=== PATIENT | female | born 1985 | race Caucasian/White ===

== ENCOUNTER 2020-09-12 07:46 | Day surgery (SDC) | payer BC ==
[2020-09-07 13:56] VITALS: BMI 26.2
[~2020-09-12 07:46] MED LIST: LACTATED RINGERS 1,000 ML IV SCH; LIDOCAINE 1% (10MG/ML) FOR IV START INTRADERMA PRN
[2020-09-12 07:59] VITALS: RESP 16; TEMP 97.6
[2020-09-12] MEDS ORDERED: MIDAZOLAM 2 MG/2 ML VIAL ONE (08:47)
[2020-09-12] MEDS ORDERED: PROPOFOL 10 MG/ML 20 ML VIAL IV ONE (08:47)
[2020-09-12] MEDS ORDERED: fentaNYL (PF) 50 MCG/ML 2 ML AMP ONE (08:47)
--- NOTE | 2020-09-12 09:02 | P.PCN ---
Date of Procedure: 09/12/20 Procedure(s) Performed: BRIEF HISTORY: Patient is a 35-year-old pleasant white female scheduled for an elective colonoscopy as a part of evaluation of prior history of colon polyps. Her last colonoscopy was 3 years ago. PROCEDURE PERFORMED: Colonoscopy with snare polypectomy. PREOPERATIVE DIAGNOSIS: History of colon polyps. IV sedation per Anesthesia. PROCEDURE: After informed consent was obtained, the patient, was brought into the endoscopy unit. IV sedation was administered by Anesthesia under continuous monitoring. Digital rectal examination was normal. Initially the Olympus CF-160 flexible video colonoscope was then inserted in the rectum, gradually advanced into the cecum without any difficulty. Careful examination was performed as the scope was gradually being withdrawn. Ileocecal valve and the appendiceal orifice were visualized and appeared normal. Prep was excellent. In the base of cecum there was a 5 mm sessile polyp removed by snare polypectomy. Mucosa of the cecum, ascending colon, transverse colon, descending colon appeared normal. The sigmoid colon there was another 5 mm polyp removed by snare polypectomy. Rest of the, sigmoid colon, and rectum appeared normal. Retroflexion was performed in the rectum and no lesions were seen. The patient tolerated the procedure well. IMPRESSION: 5 mm cecal polyp status post polypectomy 5-6 mm sigmoid colon polyp status post polypectomy Rest of the colon appeared normal RECOMMENDATIONS: Findings of this examination were discussed with the patient as well as her family. She was advised to follow with the biopsy results. If the biopsies are adenoma she can have a repeat colonoscopy in 5 years.
[2020-09-12 09:17] VITALS: PULSE 80
[2020-09-12 09:22] VITALS: BP 116/76
== END 2020-09-12 09:37 | disposition home or self-care (01) ==
LOC: ORWHC2ENDO 07:46
PROVIDERS: ATTEND Internal Medicine Gastroenterology
DX: Z12.11 Encounter for screening for malignant neoplasm of colon (principal); D12.0 Benign neoplasm of cecum; D12.5 Benign neoplasm of sigmoid colon; Z86.010 Personal history of colon polyps; Z79.1 Long term (current) use of non-steroidal anti-inflammatories (NSAID); Z90.49 Acquired absence of other specified parts of digestive tract; Z90.710 Acquired absence of both cervix and uterus; Z98.890 Other specified postprocedural states
CPT/HCPCS: 88305; 45385; J2250; J3010; J2704

== ENCOUNTER 2020-09-25 17:29 | Emergency (ER) | payer BC ==
[2020-09-25 17:45] VITALS: BP 132/84; PULSE 66; RESP 18; TEMP 99.7
[2020-09-25] MEDS ORDERED: METOCLOPRAMIDE 5 MG/ML 2 ML VIAL IVP STA (19:09)
[2020-09-25] MEDS ORDERED: diphenhydrAMINE 50 MG/ML 1 ML VIAL IVP STA (19:09)
[2020-09-25] MEDS ORDERED: KETOROLAC 15 MG/ML 1 ML VIAL IVP STA (19:09)
[2020-09-25] MEDS ORDERED: SODIUM CHLORIDE 0.9% 1,000 ML IV STA (19:09)
--- NOTE | 2020-09-25 20:29 | ED ---
General Adult HPI - General Chief complaint: Eye Problems Stated complaint: vision problems/migraine/nausea Time Seen by Provider: 09/25/20 18:40 Source: patient Mode of arrival: ambulatory Limitations: no limitations - History of Present Illness Initial comments: Patient is a 35-year-old female presenting to the emergency department with complaints of having a migraine for the last 2 days. Patient states that yesterday she had some vision changes of her right eye when she was at a store and then about an hour later started developing a bad headache with some nausea. Patient then went to bed early last night and woke up - her vision and headache was better but then throughout the day she felt like her vision was getting blurry again on the right side and then a little bit later her headache returned. Patient states she does wear glasses, she denies any specific eye pain and just generalized headache. She denies any trauma to her eyes. She denies any recent fever, chills, neck pain. She does admit to some mild nausea no vomiting or diarrhea. She denies being secondary to hysterectomy. She states she does have a history of migraines but has never had the vision changes with it. She has no further complaints at this time. Upon arrival to the ER, her vital signs are stable. - Related Data Home Medications Medication Instructions Recorded Confirmed Ibuprofen [Motrin Ib] 400 mg PO BID PRN 09/25/20 09/25/20 Allergies Allergy/AdvReac Type Severity Reaction Status Date / Time No Known Allergies Allergy Verified 09/25/20 19:20 Review of Systems ROS Statement: Those systems with pertinent positive or pertinent negative responses have been documented in the HPI. ROS Other: All systems not noted in ROS Statement are negative. Past Medical History Past Medical History: GERD/Reflux Additional Past Medical History / Comment(s): Hx migraines, hemorrhoids, dry skin, recent blood in stool. History of Any Multi-Drug Resistant Organisms: None Reported Past Surgical History: Breast Surgery, Cholecystectomy, Hysterectomy, Tonsillectomy Additional Past Surgical History / Comment(s): Breast reduction, colonoscopies, hemorrhoidectomy. Past Anesthesia/Blood Transfusion Reactions: Postoperative Nausea & Vomiting (PONV) Additional Past Anesthesia/Blood Transfusion Reaction / Comment(s): PONV X1 surgery only. Past Psychological History: No Psychological Hx Reported Smoking Status: Former smoker Past Alcohol Use History: Rare Past Drug Use History: None Reported - Past Family History Mother Family Medical History: No Reported History General Exam - General Exam Comments Initial Comments: GENERAL: Patient is well-developed and well-nourished. Patient is nontoxic and in no acute distress, sitting in dark room with sunglasses on. HEAD: Atraumatic, normocephalic. EYES: Pupils equal round and reactive to light, extraocular movements intact, sclera anicteric, conjunctiva are normal. Eyelids were unremarkable. Eye pressures are normal bilaterally. ENT: TMs normal, nares patent, oropharynx clear without exudates. Moist mucous membranes. NECK: Normal range of motion, supple without lymphadenopathy or JVD. LUNGS: Unlabored respirations. Breath sounds clear to auscultation bilaterally and equal. No wheezes rales or rhonchi. HEART: Regular rate and rhythm without murmurs, rubs or gallops. ABDOMEN: Soft, nontender, normoactive bowel sounds. No guarding, no rebound. No masses appreciated. : Deferred MUSCULOSKELETAL: Normal extremities with adequate strength and normal range of motion, no pitting or edema. No clubbing or cyanosis. NEUROLOGICAL: Patient is alert and oriented x 3. Motor and sensory are also intact. Cranial nerves II through XII grossly intact. Symmetrical smile. Normal speech, normal gait. PSYCH: Normal mood, normal affect. SKIN: Warm, Dry, normal turgor, no rashes or lesions noted. Limitations: no limitations Course Vital Signs 09/25/20 17:42 Temperature 99.7 F H Pulse Rate 66 Respiratory 18 Rate Blood Pressure 132/84 O2 Sat by Pulse 99 Oximetry Medical Decision Making - Medical Decision Making Patient is a 35-year-old female here with a migraine 2 days as well as some right-sided vision changes before the headache started. Patient's vitals are stable today, her exam is unremarkable, no acute neuro deficits, no specific eye findings. Patient was given fluids, typical migraine cocktail. She reports improvement in her symptoms, vision changes have also improved. I discussed with patient that her vision changes most likely related to her migraine, development of an aura before her migraine begins. Patient states she does have an appointment with her PCP tomorrow and I did urge her to discuss this with her PCP. She is in agreement with this plan of care. She is stable for discharge. Return parameters were discussed with the patient she verbalized understanding. Disposition Clinical Impression: Migraine with aura Disposition: HOME SELF-CARE Condition: Stable Instructions (If sedation given, give patient instructions): Migraine Headache (ED) Additional Instructions: Please return to the Emergency Department if symptoms worsen or any other concerns. Trial of Excedrin extra strength for future headaches. Follow-up with PCP. Is patient prescribed a controlled substance at d/c from ED?: No Referrals: Sushma Ramirez MD [Primary Care Provider] - 1-2 days
== END 2020-09-25 20:42 | disposition home or self-care (01) ==
LOC: EC 17:29
DX: G43.109 Migraine with aura, not intractable, without status migrainosus (principal); Z87.891 Personal history of nicotine dependence
CPT/HCPCS: 99283; 96374; 96375 ×2; 96361; J1200; J2765; J1885

== ENCOUNTER → 2020-10-23 | Outpatient (CLI) | payer BC ==
--- NOTE | 2020-10-23 17:55 | MR ---
EXAMINATION TYPE: MR angio head wo con DATE OF EXAM: 10/23/2020 COMPARISON: NONE HISTORY: Visual changes, cephalgia TECHNIQUE: Time of flight images focusing on the [place] were performed without contrast.. 2-D and 3-D postprocessing imaging is performed an dependent workstation and reviewed. FINDINGS: There is codominant vertebrobasilar system. Vertebral arteries are patent to basilar juncti on. No significant focal stenosis or aneurysmal changes identified in the posterior circulation. Ther e is small caliber but patent right posterior communicating artery. There is hypoplastic left posteri or communicating artery. Images of the anterior circulation show patent anterior communicating artery. There is no significant focal stenosis or aneurysmal change identified. IMPRESSION: No significant focal stenosis or aneurysmal change at the level of the [place].
--- NOTE | 2020-10-23 17:58 | MR ---
EXAMINATION TYPE: MR brain wo con DATE OF EXAM: 10/23/2020 COMPARISON: NONE HISTORY: Visual changes, cephalgia TECHNIQUE: Multiplanar, multisequence imaging of the brain and brainstem is performed without IV cont rast. FINDINGS: Diffusion weighted images demonstrate no evidence of a recent infarct or other diffusion abnormality. There is no extraaxial fluid collection or significant white matter signal abnormality. The ventricu lar system and cisternal spaces are normal in size and appearance. The brain volume is age appropria te. Midline structures demonstrate empty sella morphology. The craniocervical junction appears within no rmal limits. Normal vascular flow voids are present. Some artifact distortion at the level of the [place]. Mild prominence of CSF surrounding optic nerve sheaths. Visualized paranasal sinuses are clear. IMPRESSION: Correlate to exclude intracranial hypertension otherwise unremarkable study.
== END | disposition home or self-care (01) ==
LOC: RADMRIMAIN 07:07
PROVIDERS: ATTEND Family Medicine
DX: H53.8 Other visual disturbances (principal); R51.9 Headache, unspecified
CPT/HCPCS: 70544; 70551

== ENCOUNTER 2021-11-14 10:04 | Observation (INO) | payer BC ==
[2021-11-14] MEDS ORDERED: SODIUM CHLORIDE 0.9% 1,000 ML IV STA (10:24)
[2021-11-14] MEDS ORDERED: diphenhydrAMINE 50 MG/ML 1 ML VIAL IVP STA (10:27)
[2021-11-14] MEDS ORDERED: PROCHLORPERAZINE INJ 10 MG/2 ML VIAL IVP STA (10:27)
[2021-11-14 10:30] LABS: Glucose,Whole Blood 83 mg/dL (75-99)
[2021-11-14 10:46] LABS: Basophils % (A) 1 %; Eosinophils # (A) 0.2 k/uL (0-0.7); Eosinophils % (A) 2 %; HCT 42.8 % (34.0-46.0); HGB 14.5 gm/dL (11.4-16.0); Lymphocytes # (A) 2.7 k/uL (1.0-4.8); Lymphocytes % (A) 31 %; MCH 30.7 pg (25.0-35.0); MCHC 33.9 g/dL (31.0-37.0); MCV 90.6 fL (80.0-100.0); Mean Platelet Volume 7.9; Monocytes # (A) 0.5 k/uL (0-1.0); Monocytes % (A) 5 %; Neutrophils # (A) 5.3 k/uL (1.3-7.7); Neutrophils % (A) 60 %; Platelet Count 325 k/uL (150-450); RBC 4.72 m/uL (3.80-5.40); RDW 12.8 % (11.5-15.5)
--- NOTE | 2021-11-14 10:47 | XR ---
EXAMINATION TYPE: XR chest 2V DATE OF EXAM: 11/14/2021 COMPARISON: None HISTORY: 36-year-old female confusion, right-sided weakness, altered mental status TECHNIQUE: AP and lateral views FINDINGS: The cardiomediastinal silhouette, aorta, and pulmonary vasculature are within normal limits. Lungs an d pleural spaces are clear. IMPRESSION: No acute cardiopulmonary process.
--- NOTE | 2021-11-14 11:11 | CT ---
EXAMINATION TYPE: CT brain wo con for TPA DATE OF EXAM: 11/14/2021 COMPARISON: None HISTORY: 36 year-old female acute stroke suspected, neurologic deficits, CODE STROKE TECHNIQUE: Examination was done in axial plane without intravenous contrast. Coronal and sagittal r econstructions performed. CT DLP: 1099.4 mGycm Automated exposure control for dose reduction was used. FINDINGS: There is no evidence of acute intracranial hemorrhage, acute ischemic changes, mass, mass-effect, or extra-axial fluid collection. There is no effacement of cerebral sulci or basal subarachnoid cister ns. There is no hydrocephalus. There is no midline shift. Orta-white matter distinction is preserv ed. Partially empty sella, probably incidental. Mild mucosal thickening anterior right ethmoid air cells. Anterior leftward nasal septal deviation. M astoid air cells well pneumatized. Orbits and globes appear intact. IMPRESSION: No acute intracranial abnormality seen. Partially empty sella may be an incidental finding. Correlate clinically to exclude the possibility of pseudotumor cerebri.
[2021-11-14 11:13] LABS: Partial Thromboplastin Time 24.5 sec (22.0-30.0); Prothrombin Time 10.4 sec (9.0-12.0)
[2021-11-14 11:44] LABS: ALT 36 U/L (4-34); African American GFR (CKD) >90 (>60 ml/min/1.73 sqM); Albumin 4.4 g/dL (3.5-5.0); Anion Gap 10 mmol/L; Blood Urea Nitrogen 15 mg/dL (7-17); Calcium 9.7 mg/dL (8.4-10.2); Carbon Dioxide 21 mmol/L (22-30); Chloride 107 mmol/L (98-107); Glucose 87 mg/dL (74-99); Non-African American GFR(CKD) >90 (>60 ml/min/1.73 sqM); Sodium 138 mmol/L (137-145); Total Bilirubin 0.6 mg/dL (0.2-1.3); Total Protein 7.5 g/dL (6.3-8.2)
[2021-11-14 11:46] LABS: Potassium 4.4 mmol/L (3.5-5.1)
[2021-11-14 11:47] LABS: AST 30 U/L (14-36); Alkaline Phosphatase 46 U/L (38-126)
--- NOTE | 2021-11-14 11:49 | CT ---
EXAMINATION TYPE: CT angio head neck DATE OF EXAM: 11/14/2021 HISTORY: CODE STROKE COMPARISON: None CT DLP: 496.9 mGycm. Automated Exposure Control for Dose Reduction was Utilized. TECHNIQUE: CTA scan of the neck is performed without and with IV Contrast, patient injected with 65 ml mL of Isovue 370, axial images are obtained, coronal and sagittal reformatted images are reviewed. 3D reconstructed images are created on an independent workstation and reviewed. FINDINGS: Vertebral basilar system and posterior cerebral arteries enhance normally. Slightly reduced caliber of the right posterior cerebral artery relative to left correlate clinically. The carotid arteries enhance within the carotid canal and cavernous segment of the ICA. There appears to be enhancement of the middle cerebral arteries bilaterally Appears to be standard anatomy of the great vessels. Portions of the subclavian artery and the left a re secured by artifact. Right subclavian artery patent. Proximal carotid arteries are patent. Carotid bifurcations are widely patent with no significant stenosis. There is a 2 mm nodular prominence at t he level the anterior communicating artery. IMPRESSION: 1. 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 Recommend follow-up MRI p ain and MRA [place]. 2. Carotid bifurcations are widely patent. NASCET criteria was used in interpretation of this exam?
[2021-11-14] MEDS ORDERED: ASPIRIN 325 MG TAB PO STA (12:53)
--- NOTE | 2021-11-14 12:54 | ED ---
General Adult HPI - General Chief complaint: Neuro Symptoms/Deficit Stated complaint: arm numbness, trouble speaking Time Seen by Provider: 11/14/21 10:11 Source: patient, RN notes reviewed, old records reviewed Mode of arrival: ambulatory Limitations: no limitations - History of Present Illness Initial comments: Patient is a 36-year-old female with past medical history remarkable for a one- time episode of prior migraine, GERD, reflux presents emergency Department with strokelike symptoms. Patient was at work when she answered the phone, and was unable to speak. Coworkers said that the right side of her face had facial droop and she was drooling out of the right side of her mouth. That she momentarily was unable to use her hands. She was unable to find the correct words to speak. She is brought to the emergency department for further eval uation, however symptoms spontaneously resolved. Onset of symptoms was at approximately 0935. She currently presents with no neurological symptoms. She believes that one of her migraine headaches may be starting due to some visual changes. She denies any numbness, weakness, chest pain, shortness breath, lightheadedness, abdominal pain, nausea, vomiting. His no fevers or chills. Has no other acute complaints at this time. Presented for her neurological deficits and concern for possible stroke. - Related Data Home Medications Medication Instructions Recorded Confirmed Ascorbic Acid [Vitamin C] 1,000 mg PO DAILY 11/14/21 11/14/21 Biotin 5 mg PO DAILY 11/14/21 11/14/21 Allergies Allergy/AdvReac Type Severity Reaction Status Date / Time No Known Allergies Allergy Verified 11/14/21 11:23 Review of Systems ROS Statement: Those systems with pertinent positive or pertinent negative responses have been documented in the HPI. Review of Systems: CONST: Denies fever EYES: Endorses colors in vision. ENT: Denies nasal congestion C/V: Denies Chest pain RESP: Denies shortness of breath GI: Denies abdominal pain : Denies dysuria SKIN: Denies rash. MSK: Denies joint pain. NEURO: Denies headache ROS Other: All systems not noted in ROS Statement are negative. Past Medical History Past Medical History: GERD/Reflux Additional Past Medical History / Comment(s): Hx migraines, hemorrhoids, dry skin, recent blood in stool. History of Any Multi-Drug Resistant Organisms: None Reported Past Surgical History: Breast Surgery, Cholecystectomy, Hysterectomy, Tonsillectomy Additional Past Surgical History / Comment(s): Breast reduction, colonoscopies, hemorrhoidectomy. Past Anesthesia/Blood Transfusion Reactions: Postoperative Nausea & Vomiting (PONV) Additional Past Anesthesia/Blood Transfusion Reaction / Comment(s): PONV X1 surgery only. Past Psychological History: No Psychological Hx Reported Smoking Status: Former smoker Past Alcohol Use History: Rare Past Drug Use History: None Reported - Past Family History Mother Family Medical History: No Reported History Father Family Medical History: No Reported History Additional Family Medical History / Comment(s): Father is healthy. General Exam - General Exam Comments Initial Comments: General: Appears in no acute distress. HEAD: Normal with no signs of head trauma. EYES: PERRLA, EOMI, conjunctiva normal, no discharge. Pupils are 3 mm and equal bilaterally. ENT: Hearing grossly intact, normal oropharynx. RESPIRATORY: Clear breath sounds bilaterally. No wheezes, rales, or rhonchi. C/V: Regular rate and rhythm. S1 and S2 auscultated, no edema, peripheral pulses 2+ and intact throughout ABD: Abd is soft, nontender, nondistended EXT: Normal range of motion, no obvious deformity SKIN: No rashes or lesions observed on exposed skin. NEURO: Alert and oriented 4. No focal sensory strength deficits. NIH is currently 0. GCS is 15. Limitations: no limitations Course Vital Signs 11/14/21 11/14/21 11/14/21 10:05 10:41 11:05 Temperature 98 F Pulse Rate 88 83 92 Respiratory 18 18 18 Rate Blood Pressure 126/85 121/81 115/79 O2 Sat by Pulse 100 97 99 Oximetry 11/14/21 11/14/21 11/14/21 11:20 11:35 11:50 Temperature Pulse Rate 58 L 61 66 Respiratory 18 18 18 Rate Blood Pressure 103/76 100/73 102/55 O2 Sat by Pulse 99 97 97 Oximetry 11/14/21 12:20 Temperature Pulse Rate 66 Respiratory 18 Rate Blood Pressure 106/68 O2 Sat by Pulse 97 Oximetry Medical Decision Making - Medical Decision Making Due to the patient's presentation and physical exam, I am concerned possible acute stroke. Stroke. He will be activated. Patient is not a TPA candidate, as her symptoms have resolved, currently is an NIH of 0, and the risks far outweigh the benefits. I spoke with the Neuro Crit Care Dr. Pate was in agreement this plan. Sugar is 80. Laboratory studies were drawn. EKG was obtained and showed normal sinus rhythm with no signs of acute ischemia. Patient's CT imaging revealed a possible empty sella which may be an incidental finding, correlate clinically to exclude the possibility of pseudotumor cerebri. CTA brain as suspicious for a 2 mm aneurysm of the anterior communicating artery with her condition for follow- up MRI. No signs of acute obstruction. Laboratory studies are remarkable for the patient not being . Troponin is negative. The remainder of the labs are unremarkable. On reevaluation, patient was complaining of a mild developing headache, and therefore was administered migraine cocktail to the IV. I discussed that I woul d like to admitted to the hospital for further monitoring and MRI. She was in agreement with plan. I consulted Dr. Eduardo who agreed to evaluate the patient. I also spoke with Dr. Haddad who agreed to follow-up patient outpatient and recommended an MRI for further evaluation of the aneurysm. I spoke with the admitting team under Dr. Cherri gonzales the patient. Patient will be admitted to the telemetry floor in stable condition. MRI is pending. She was administered an aspirin. I spoke with Dr. Eduardo [id number], and on review of imaging, he is concerned for possible pseudotumor cerebri and I was in agreement. This fits with the patient's intermittent headaches as well. He will arrange for assessment the patient's opening pressures. - Lab Data Result diagrams: 11/14/21 10:35 11/14/21 10:35 Lab Results 11/14/21 11/14/21 11/14/21 Range/Units 10:29 10:35 10:35 WBC 9.0 (3.8-10.6) k/uL RBC 4.72 (3.80-5.40) m/uL Hgb 14.5 (11.4-16.0) gm/dL Hct 42.8 (34.0-46.0) % MCV 90.6 (80.0-100.0) fL MCH 30.7 (25.0-35.0) pg MCHC 33.9 (31.0-37.0) g/dL RDW 12.8 (11.5-15.5) % Plt Count 325 (150-450) k/uL MPV 7.9 Neutrophils % 60 % Lymphocytes % 31 % Monocytes % 5 % Eosinophils % 2 % Basophils % 1 % Neutrophils # 5.3 (1.3-7.7) k/uL Lymphocytes # 2.7 (1.0-4.8) k/uL Monocytes # 0.5 (0-1.0) k/uL Eosinophils # 0.2 (0-0.7) k/uL Basophils # 0.0 (0-0.2) k/uL PT 10.4 (9.0-12.0) sec INR 1.0 (<1.2) APTT 24.5 (22.0-30.0) sec Sodium (137-145) mmol/L Potassium (3.5-5.1) mmol/L Chloride (98-107) mmol/L Carbon Dioxide (22-30) mmol/L Anion Gap mmol/L BUN (7-17) mg/dL Creatinine (0.52-1.04) mg/dL Est GFR (CKD-EPI)AfAm (>60 ml/min/1.73 sqM) Est GFR (CKD-EPI)NonAf (>60 ml/min/1.73 sqM) Glucose (74-99) mg/dL POC Glucose (mg/dL) 83 (75-99) mg/dL POC Glu Cash Poster ID Komal Vega Calcium (8.4-10.2) mg/dL Total Bilirubin (0.2-1.3) mg/dL AST (14-36) U/L ALT (4-34) U/L Alkaline Phosphatase (38-126) U/L Troponin I (0.000-0.034) ng/mL Total Protein (6.3-8.2) g/dL Albumin (3.5-5.0) g/dL TSH (0.465-4.680) mIU/L Coronavirus (PCR) (Not Detectd) 11/14/21 11/14/21 11/14/21 Range/Units 10:35 10:35 10:35 WBC (3.8-10.6) k/uL RBC (3.80-5.40) m/uL Hgb (11.4-16.0) gm/dL Hct (34.0-46.0) % MCV (80.0-100.0) fL MCH (25.0-35.0) pg MCHC (31.0-37.0) g/dL RDW (11.5-15.5) % Plt Count (150-450) k/uL MPV Neutrophils % % Lymphocytes % % Monocytes % % Eosinophils % % Basophils % % Neutrophils # (1.3-7.7) k/uL Lymphocytes # (1.0-4.8) k/uL Monocytes # (0-1.0) k/uL Eosinophils # (0-0.7) k/uL Basophils # (0-0.2) k/uL PT (9.0-12.0) sec INR (<1.2) APTT (22.0-30.0) sec Sodium 138 (137-145) mmol/L Potassium 4.4 (3.5-5.1) mmol/L Chloride 107 (98-107) mmol/L Carbon Dioxide 21 L (22-30) mmol/L Anion Gap 10 mmol/L BUN 15 (7-17) mg/dL Creatinine 0.63 (0.52-1.04) mg/dL Est GFR (CKD-EPI)AfAm >90 (>60 ml/min/1.73 sqM) Est GFR (CKD-EPI)NonAf >90 (>60 ml/min/1.73 sqM) Glucose 87 (74-99) mg/dL POC Glucose (mg/dL) (75-99) mg/dL POC Glu Cash Poster ID Calcium 9.7 (8.4-10.2) mg/dL Total Bilirubin 0.6 (0.2-1.3) mg/dL AST 30 (14-36) U/L ALT 36 H (4-34) U/L Alkaline Phosphatase 46 (38-126) U/L Troponin I <0.012 (0.000-0.034) ng/mL Total Protein 7.5 (6.3-8.2) g/dL Albumin 4.4 (3.5-5.0) g/dL TSH 1.770 (0.465-4.680) mIU/L Coronavirus (PCR) (Not Detectd) 11/14/21 Range/Units 12:48 WBC (3.8-10.6) k/uL RBC (3.80-5.40) m/uL Hgb (11.4-16.0) gm/dL Hct (34.0-46.0) % MCV (80.0-100.0) fL MCH (25.0-35.0) pg MCHC (31.0-37.0) g/dL RDW (11.5-15.5) % Plt Count (150-450) k/uL MPV Neutrophils % % Lymphocytes % % Monocytes % % Eosinophils % % Basophils % % Neutrophils # (1.3-7.7) k/uL Lymphocytes # (1.0-4.8) k/uL Monocytes # (0-1.0) k/uL Eosinophils # (0-0.7) k/uL Basophils # (0-0.2) k/uL PT (9.0-12.0) sec INR (<1.2) APTT (22.0-30.0) sec Sodium (137-145) mmol/L Potassium (3.5-5.1) mmol/L Chloride (98-107) mmol/L Carbon Dioxide (22-30) mmol/L Anion Gap mmol/L BUN (7-17) mg/dL Creatinine (0.52-1.04) mg/dL Est GFR (CKD-EPI)AfAm (>60 ml/min/1.73 sqM) Est GFR (CKD-EPI)NonAf (>60 ml/min/1.73 sqM) Glucose (74-99) mg/dL POC Glucose (mg/dL) (75-99) mg/dL POC Glu Cash Poster ID Calcium (8.4-10.2) mg/dL Total Bilirubin (0.2-1.3) mg/dL AST (14-36) U/L ALT (4-34) U/L Alkaline Phosphatase (38-126) U/L Troponin I (0.000-0.034) ng/mL Total Protein (6.3-8.2) g/dL Albumin (3.5-5.0) g/dL TSH (0.465-4.680) mIU/L Coronavirus (PCR) Not Detected (Not Detectd) - EKG Data -: EKG Interpreted by Me EKG Comments: 12-lead Electrocardiogram Interpretation Note EKG was reviewed and interpreted by myself. 12-lead ECG performed at 10:15 is interpreted by me as revealing normal sinus rhythm at a rate of 76 beats per minute. [place] is normal. CA interval is 126 seconds, QRS duration is 88 ms, QTc is 414 ms.. There were no ST or T wave abnormalities to suggest myocardial ischemia or injury. R wave progression across the precordium was satisfactory. By my interpretation this EKG is non-diagnostic for acute ischemia. Critical Care Time Critical Care Time: Yes Total Critical Care Time: 30 Critical Care Time: Upon my evaluation, this patient had a high probability of imminent or life- threatening deterioration due to tickle deficits, stroke pager activation, which required my direct attention, intervention, and personal management. I have personally provided 30 minutes of critical care time exclusive of time spent on separately billable procedures. Time includes review of laboratory data, radiology results, discussion with consultants, and monitoring for potential decompensation. Interventions were performed as documented in my note. Disposition Clinical Impression: Migraines, Acute focal neurological deficit Disposition: ADMITTED IP TO THIS HOSP Condition: Serious
[2021-11-14] MEDS ORDERED: NALOXONE 0.4 MG/ML 1 ML VIAL IV PRN (14:34)
--- NOTE | 2021-11-14 15:03 | P.HPIM ---
History of Present Illness H&P Date: 11/14/21 Chief Complaint: facial weakness 36-year-old female with no significant past medical history presented to the emergency department due to sudden onset of right facial weakness, inability to express herself and bilateral arms ''not responding''. After that episode she has headaches. He has history of migraine. She also complained of ''glidoscope vision''. Symptoms lasted for 5 minutes but she did not regain her full- strength and consciousness until about 45 minutes after. No fevers or chills. No recent illness. She can't recall focal weakness. No chest pain, shortness of breath, dizziness, nausea or vomiting. 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 Head CT was unremarkable for anything acute. Labs unremarkable, tested negative for covid. Review of Systems Complete review of system performed, pertinent positives per HPI, otherwise negative Past Medical History Past Medical History: GERD/Reflux, Syncope Additional Past Medical History / Comment(s): Pt states she has hx of migraines but has not had one in years, past syncope associated with anemia/hypoglycemia, benign colon polyps, pt recently had covid, tested + 10/31/21 and symptoms start ed 10/28/21. History of Any Multi-Drug Resistant Organisms: None Reported Past Surgical History: Breast Surgery, Cholecystectomy, Hysterectomy, Tonsill ectomy Additional Past Surgical History / Comment(s): Breast reduction, colonoscopies, hemorrhoidectomy. Past Anesthesia/Blood Transfusion Reactions: Postoperative Nausea & Vomiting (PONV) Additional Past Anesthesia/Blood Transfusion Reaction / Comment(s): PONV X1 surgery only. Past Psychological History: No Psychological Hx Reported Additional Psychological History / Comment(s): Pt resides with her spouse, 3 children and [id number]. She is independent. Smoking Status: Former smoker Past Alcohol Use History: Rare Additional Past Alcohol Use History / Comment(s): Pt smoked for less than a year in approximately 2001 Past Drug Use History: None Reported - Past Family History Mother Family Medical History: No Reported History Additional Family Medical History / Comment(s): Mother is healthy Father Family Medical History: No Reported History Additional Family Medical History / Comment(s): Father is healthy. Medications and Allergies Home Medications Medication Instructions Recorded Confirmed Type Ascorbic Acid [Vitamin C] 1,000 mg PO DAILY 11/14/21 11/14/21 History Biotin 5 mg PO DAILY 11/14/21 11/14/21 History Allergies Allergy/AdvReac Type Severity Reaction Status Date / Time No Known Allergies Allergy Verified 11/14/21 11:23 Physical Exam Vitals: Vital Signs Temp Pulse Resp BP Pulse Ox 11/14/21 12:20 66 18 106/68 97 11/14/21 11:50 66 18 102/55 97 11/14/21 11:35 61 18 100/73 97 11/14/21 11:20 58 L 18 103/76 99 11/14/21 11:05 92 18 115/79 99 11/14/21 10:41 83 18 121/81 97 11/14/21 10:05 98 F 88 18 126/85 100 Intake and Output 11/13/21 11/14/21 11/14/21 22:59 06:59 14:59 Other: Weight 68.039 kg Constitutional: No acute distress, conversant, pleasant Eyes:Anicteric sclerae, moist conjunctiva, no lid-lag, PERRLA, ENMT: Oropharynx clear, no erythema, exudates Neck: Supple, FROM, no masses, or JVD, No carotid bruits, No thyromegaly Lungs: Clear to auscultation, Clear to percussion, Normal respiratory effort, no accessory muscle use Cardiovascular: Heart regular in rate and rhythm, No murmurs, gallops, or rubs, No peripheral edema Abdominal: Soft, Nontender, no guarding, rebound or rigidity, Normoactive bowel sounds, No hepatomegaly, No splenomegaly, No palpable mass Skin: Normal temperature, tone, texture, turgor, no induration, No subcutaneous nodules, No rash, lesions, No ulcers Extremities: No digital cyanosis, No clubbing, Pedal pulses intact and symm etrical, Radial pulses intact and symmetrical, No calf tenderness Psychiatric: Alert and oriented to person, place and time, appropriate affect, intact judgement Neuro: Muscles Strength 5/5 in all 4 extremities, Sensation to light touch grossly present throughout, Cranial nerves II-XII grossly intact, no focal sensory deficits Results CBC & Chem 7: 11/14/21 10:35 11/14/21 10:35 Labs: Abnormal Lab Results - Last 24 Hours (Table) 11/14/21 Range/Units 10:35 Carbon Dioxide 21 L (22-30) mmol/L ALT 36 H (4-34) U/L Thrombosis Risk Factor Assmnt - Choose All That Apply Any of the Below Risk Factors Present?: Yes Other Risk Factors: No Other congenital or acquired thrombophilia - If yes, enter type in comment: No Assessment and Plan Plan: TIA D/w neuro Will do stroke work up with brain MRI, MRA and echo. Started on aspirin and lipitor Tele Hx of migraines Currently stable Admit to observation
--- NOTE | 2021-11-14 15:14 | P.CNNES ---
History of Present Illness Consult date: 11/14/21 Requesting physician: Juan Carlos Burdick Reason for Consult: stroke/tia History of Present Illness: This is a 36-year-old left-handed woman with history of migraine, partial hysterectomy who presented emergency department on 11/14/2021 because difficulty getting her words out and left hand weakness. According the patient her symptoms began at around 9:25 AM today and that she said that she was talking on the phone and all of a sudden the she had difficulty getting her words out and she knew what she wanted to say but that she cannot get her words out. As well as that she had left hand weakness as well as was told by her coworker that she had right facial droop. She said the episode lasted for 3-5 minutes. She denied any jerk in of any extremities during this episode. She denied any headaches prior to episode that she felt like she had a headache over the left temporal region and if she is felt like a nagging headache. She denies of any photophobia, phonophobia, nausea or vomiting. She feels she is back to baseline now. She denies any history of stroke or TIAs in the past or any seizures. Patient stated that she has history of migraines and the last migraine was about a year ago and she said that she was has occular migraine and followed up with Dr. Yassine Juárez in the past. For migraines in the past she had photophobia, phonophobia and had to be in a dark quiet place. She had circular halo around eye with headache next day. Patient denies being on antiplatelets or statins. She denies of tobacco use or any illicit drug use. She socially drinks alcohol. She denies any family history of stroke or seizure. Upon reviewing medical records patient had MRI brain which is reported as to correlate to exclude intracranial hypertension otherwise unremarkable study. She had the MRI of the brain since the patient is a having visual changes and cephalgia. MRA of the head is reported as no significant focal stenosis or aneurysm changes at the level [place]. Some of the work-up in the hospital consisted of: Initial vital signs his blood pressure of 126/85, heart rate of 88, respiratory of 18, temperature of 98 Fahrenheit oral and pulse ox 100% room air. CT of the head is reported as no acute intracranial abnormality seen. Empty sella may be incidental finding. Correlate clinically to exclude the possibility of pseudotumor cerebri. There is no acute ischemia or subacute i schemia seen as well as there is no intra-parenchymal hemorrhage seen. 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 Recommend follow-up MRI and MRA [place]. Carotid bifurcation are widely patent CBC with differential is unremarkable Chemistry panel is a creatinine 0.63, AST of 30 and ALT of 36, serum glucose of 87, calcium 9.7. INR is 1.0, PTT of 10.4 and PTT is 24.5. Review of Systems Review of system: The 12 point system was reviewed and apparent positive and negative per HPI. Past Medical History Past Medical History: GERD/Reflux Additional Past Medical History / Comment(s): Hx migraines, hemorrhoids, dry skin, recent blood in stool. History of Any Multi-Drug Resistant Organisms: None Reported Past Surgical History: Breast Surgery, Cholecystectomy, Hysterectomy, Tonsillectomy Additional Past Surgical History / Comment(s): Breast reduction, colonoscopies, hemorrhoidectomy. Past Anesthesia/Blood Transfusion Reactions: Postoperative Nausea & Vomiting (PONV) Additional Past Anesthesia/Blood Transfusion Reaction / Comment(s): PONV X1 surgery only. Past Psychological History: No Psychological Hx Reported Smoking Status: Former smoker Past Alcohol Use History: Rare Past Drug Use History: None Reported - Past Family History Mother Family Medical History: No Reported History Father Family Medical History: No Reported History Additional Family Medical History / Comment(s): Father is healthy. Medications and Allergies Home Medications Medication Instructions Recorded Confirmed Type Ascorbic Acid [Vitamin C] 1,000 mg PO DAILY 11/14/21 11/14/21 History Biotin 5 mg PO DAILY 11/14/21 11/14/21 History Allergies Allergy/AdvReac Type Severity Reaction Status Date / Time No Known Allergies Allergy Verified 11/14/21 11:23 Physical Examination - Vital Signs Vital Signs: Vital Signs Temp Pulse Resp BP Pulse Ox 11/14/21 12:20 66 18 106/68 97 11/14/21 11:50 66 18 102/55 97 11/14/21 11:35 61 18 100/73 97 11/14/21 11:20 58 L 18 103/76 99 11/14/21 11:05 92 18 115/79 99 11/14/21 10:41 83 18 121/81 97 11/14/21 10:05 98 F 88 18 126/85 100 Intake and Output 11/13/21 11/14/21 11/14/21 22:59 06:59 14:59 Other: Weight 68.039 kg GENERAL: The patient is lying in bed and is not in acute distress. CHEST: The heart rate is regular rate rhythm. No murmurs to auscultation. No carotid bruit bilaterally. LUNG: Clear to auscultation bilaterally no wheezing noted throughout. Not labored breathing. ABDOMEN/GI: Bowel sounds present in all 4 quadrants. No tenderness to palpation throughout. NEUROLOGICAL: Higher mental function: The patient is awake, alert, oriented to self, place and time. Patient is following commands. No aphasia and no neglect. Cranial nerves: The pupils are round, equal and reactive to light and accommodation. Visual sparrow are full to confrontation throughout. Extraocular movement is intact no nystagmus is noted. Facial sensation is normal to touch throughout. The facial strength is normal throughout. Hearing is normal bila terally to hand rub. Tongue is midline and moved [id number] without any difficulty. No dysarthria is noted. Shoulder shrug is normal bilaterally. Motor: Gait is normal. The strength is 5 over 5 throughout. Normal tone and bulk. Cerebellum: Normal finger to nose heel to quinones bilaterally. Sensation: Sensation is normal to touch throughout. Reflexes (right/left): 2+ throughout. Plantars are downgoing bilaterally. Results - Laboratory Findings CBC and BMP: 11/14/21 10:35 11/14/21 10:35 Abnormal Lab Findings: Abnormal Labs 11/14/21 10:35 Carbon Dioxide 21 L ALT 36 H Assessment and Plan Assessment: * Transient symptoms of aphasia (expressive), left hand weakness and right facial droop then later proceed with headache: Uncertain cause. Rule out idiopathic intracranial hypertension (pseudotumor cerebri) (patient has empty sella and prior MRI was noted to rule out idiopathic intracranial hypertension. Patient ocular symptoms in the past were not ocular migraines but were due to Idiopathic intracrania hypertension. Cannot rule out TIA * Questionable Anterior communicating artery on CTA * History of reported Migraine/Ocular migraine (last one year ago). * History of partial hysterectomy Plan: MRI the brain is ordered by the ED team is pending I ordered MRA of the head to rule out any aneurysm Consulted Anesthesiology team for STAT lumbar puncture: Requested opening and closing pressure. Consulted Ophthalmology team (Dr. Maher). Aspirin 325 mg once was given. I started the patient on ASA 81mg and Lipitor 10mg qhs. Ordered 2-D echo, TSH. Lipid panel is ordered. Continue neuro checks PT, OT and TRUCK GUARD are consulted Continue neuro checks Continue cardiac monitoring Defer the rest of the medical management to the primary team. For DVT prophylaxis: Use SCD for now since getting Lumbar puncture. The plan is discussed with the patient and the ED physician. Thank you for the consultation. Lai Eduardo MD Neuro-Hospitalist. Time with Patient: Greater than 30
--- NOTE | 2021-11-14 16:17 | MR ---
EXAMINATION TYPE: MR angio head wo con DATE OF EXAM: 11/14/2021 COMPARISON: 10/23/2020 HISTORY: Rule out aneurysm (?SUMAN on CTA). Right sided facial drop, and slurred speech upon incident., Abnormal CTA TECHNIQUE: Time of flight images focusing on the [place] were performed without contrast. FINDINGS: Findings are stable. Findings are suspicious for aneurysm approximately 2 mm at the level o f anterior communicating artery. Alternatively findings may represent variant anatomy with fenestrati on at the level of the anterior communicating artery. Findings stable compared to prior MRI 10/23/2020 . Anterior and posterior circulation are intact. No evident embolus or dissection. IMPRESSION: Stable findings as described, follow-up could BE performed to assess for stability.
--- NOTE | 2021-11-14 16:29 | MR ---
MR brain without contrast HISTORY: Right-sided facial droop, slurred speech, acute stroke suspected, abnormal head CT Multiplanar multisequence imaging through the brain, correlation to CT brain 11/14/2021, prior brain MRI 10/23/2020 There is no restricted diffusion. Partially empty sella is again noted. Corpus callosum, cervical med ullary junction, cerebellopontine angles are normal. There is mild inflammatory change in ethmoid air cells. There is no hemorrhage or hydrocephalus. Orbits show symmetric appearance. Possible arachnoid cyst present in the posterior fossa is stable. Brain signal is unchanged. Suspect fluid signal along the cranial nerves similar to prior. IMPRESSION: Stable brain MRI, correlate to exclude intracranial hypertension, pseudotumor cerebri alt rios findings likely incidental. No acute abnormality. Sinus disease.
[2021-11-14] MEDS ORDERED: PROPARACAINE 0.5% OPHTH DROPS 15 ML BTL BOTH EYES STA (16:55)
[2021-11-14] MEDS ORDERED: ARTIFICIAL TEARS-HYPROMELLOSE DROPS 15 ML BTL BOTH EYES PRN (16:55)
[2021-11-14] MEDS ORDERED: TROPICAMIDE 1% OPHTH DROPS 2 ML BTL BOTH EYES ONE (16:55)
[2021-11-14] MEDS ORDERED: PHENYLEPHRINE 2.5% OPHTH DRP 2ML BOTH EYES SCH (17:00)
--- NOTE | 2021-11-14 17:57 | P.PN ---
Progress Note - Text Progress Note Date: 11/14/21 (4567) 36-year-old female for lumbar puncture. History of any bleeding disorder. CT head showed no mass effect. No midline shift. Ordered for mental status changes this afternoonnow resolved. Coagulopathies: Coags within normal limits, heparin subcu held, platelets great er than 100 Medications: No anticoagulants other than a baby aspirin. Consent obtained and confirmed. On chart. Timeout performed Sterile protocol was used throughout procedure. 45 was identified and patient lying in left lateral decubitus. Chlorhexidine 2 was used to clean the patient's back. Lidocaine 1% 3 mL was used as local and was infiltrated. Spinal needle 22-gauge 3-1/2 inches was used in one attempt. CSF was obtained. No heme. Opening pressure 20 cm water. Specimens collected 4-2 mL each. Closing pressure 15 cm water. Needle was withdrawn and Band-Aid applied. Patie nt tolerated procedure well without complication. Samples left and care of nurse. All questions answered.
--- NOTE | 2021-11-14 19:24 | P.CON ---
Consult Note - . Consult date: 11/14/21 Assessment/Plan:: This is a 36 y/o female with previous history of classic migraine who today experienced the typical aura as she previously has had, but then had an hour or so of some expressive aphasia, but full awareness of her surroundings. She was n oted to have had a right facial weakness and drooling. She came immediately to the ER for assessment and any facial weakness had resolved, however, she states that the expressive aphasia continued to last for some time after admission, then resolved. She denies any ongoing symptoms weakness, loss of time, expressive aphasia, aura or headache. Previous migraine symptoms often presented wtih a 2-3 hour of aura followed by 2 hours of headache /. The aura is mostly right-sided and is without any changes in shape or area of involvement for its duration and resolves as suddenly as it presents. The history is not known to be associated with any underlying conditions. It is never in both eyes at the same time. There are no previous eye treatments or concerns from the past, and she regularly is seen by Dr. Yeung, OD for any possible eye-associated findings with the headaches. She currently wears SCL and glasses regularly. PE: Va cc 20/20 OD, 20/20 OS IOP: tonopen 7 mm HgOD , 8 mm Hg OS @ 1845 Pupils: 4.5-3.0, without any APD CF: normal OU EOM: full ductions and versions without diplopia External: no noted facial droop, weakness, normal sensation bilaterally modified SLE: dilated @ 1845 with 2.5% neosynephrine & 1% tropicamide OU (will remain dilated for 6-7) Cornea: clear OU Conj: white and quiet AC: deep and quiet OU Iris: blue without pathology Lens: clear Vitreous: clear Optic nerve: S/F/P, C:D 0.35 OU Macula: +FLR, quiet Vascular: 0.67 OU, no lesions Peripheral: normal without pathology A: new onset right facial weakness with expressive aphasia, now resolved. There is no indication within the eyes for any IIH, optic nerves are totally normal, and gross confrontational sparrow are normal.This consistent with the opening pressure on lumbar puncture which was ~ 20 cm H20. P: Thank you for this consultation and I will return if there is anything else I can contribute to your patient's care. Recommend on release she returns to Dr. Yeung OD for her routine eye care.
[2021-11-14 20:29] LABS: Appearance,CSF Clear; CSF Tube Number 4; CSF Tube Volume 2; Nucleated Cells, CSF 3 u/L (0-5); Red Blood Cell,CSF 0 u/L (0-10)
[2021-11-14 20:40] LABS: Glucose,CSF 43 mg/dL (40-70); Total Protein,CSF 49 mg/dL (12-60)
[2021-11-14] MEDS ORDERED: HEPARIN SODIUM,PORCINE/PF 5,000 UNIT/0.5 ML SYRINGE SQ SCH (21:00)
[2021-11-14] MEDS ORDERED: ATORVASTATIN 10 MG TAB PO SCH (21:00)
[2021-11-15 07:51] VITALS: BP 110/63; PULSE 66; RESP 17; TEMP 98.4
[2021-11-15] MEDS ORDERED: ASPIRIN 81 MG PO SCH (09:00)
[2021-11-15] MEDS ORDERED: HEPARIN SODIUM,PORCINE/PF 5,000 UNIT/0.5 ML SYRINGE SQ SCH (09:15)
[2021-11-15 09:23] LABS: Basophils # (A) 0.02 X 10*3/uL (0.00-0.10); Basophils % (A) 0.3 %; Eosinophils # (A) 0.12 X 10*3/uL (0.04-0.35); Eosinophils % (A) 1.7 %; HCT 37.7 % (37.2-46.3); HGB 12.4 g/dL (12.0-15.0); Lymphocytes # (A) 2.14 X 10*3/uL (0.90-5.00); Lymphocytes % (A) 30.4 %; MCH 29.7 pg (27.0-32.0); MCHC 32.9 g/dL (32.0-37.0); MCV 90.2 fL (80.0-97.0); Mean Platelet Volume 10.7 fL (9.5-12.2); Monocytes # (A) 0.66 X 10*3/uL (0.20-1.00); Monocytes % (A) 9.4 %; Neutrophils # (A) 4.06 X 10*3/uL (1.80-7.70); Neutrophils % (A) 57.8 %; Platelet Count 247 X 10*3/uL (140-440); RBC 4.18 X 10*6/uL (4.10-5.20); WBC 7.03 X 10*3/uL (4.50-10.00)
--- NOTE | 2021-11-15 10:00 | ECHOF ---
Referral Reason:tia MEASUREMENTS -------- HEIGHT: 167.6 cm WEIGHT: 68.0 kg BP: RVIDd: 1.9 cm (< 3.3) IVSd: 0.9 cm (0.6 - 1.1) LVIDd: 4.4 cm (3.9 - 5.3) LVPWd: 1.2 cm (0.6 - 1.1) IVSs: 1.8 cm LVIDs: 3.1 cm LVPWs: 1.3 cm LAESV Index (A-L): 25.82 ml/m Ao Diam: 3.2 cm (2.0 - 3.7) AV Cusp: 1.9 cm (1.5 - 2.6) LA Diam: 3.0 cm (2.7 - 3.8) MV EXCURSION: 13.883 mm (> 18.000) MV EF SLOPE: 90 mm/s (70 - 150) EPSS: 0.6 cm MV E Mateo: 0.82 m/s MV DecT: 130 ms MV A Mateo: 0.68 m/s MV E/A Ratio: 1.21 RAP: 5.00 mmHg RVSP: 21.47 mmHg FINDINGS -------- This was a technically good study. The left ventricular size is normal. Left ventricular wall thickness is normal. Overall left vent ricular systolic function is normal with, an EF between 55 - 60 %. The diastolic filling pattern is normal for the age of the patient {E/E'}. The right ventricle is normal in size. The left atrial size is normal. The right atrial size is normal. Interatrial and interventricular septum intact. The aortic valve is trileaflet and appears structurally normal. The mitral valve is normal. There is trace mitral regurgitation. The tricuspid valve appears structurally normal. Trace tricuspid regurgitation present. Right abbie tricular systolic pressure is normal at < 35 mmHg. There is no pulmonic regurgitation present. The aortic root size is normal. Normal inferior vena cava with normal inspiratory collapse consistent with estimated right atrial pre ssure of 5 mmHg. Echo free space may represent effusion or a pericardial fat pad. CONCLUSIONS -------- 1. The left ventricular size is normal. 2. Left ventricular wall thickness is normal. 3. Overall left ventricular systolic function is normal with, an EF between 55 - 60 %. 4. The diastolic filling pattern is normal for the age of the patient {E/E'} 5. There is trace mitral regurgitation. 6. Trace tricuspid regurgitation present. 7. Echo free space may represent effusion or a pericardial fat pad. MATERIALS SUPERVISOR: Luh Hollis RDCS
[2021-11-15 10:13] LABS: African American GFR (CKD) 128.3 (60.0-200.0); BUN/Creat Ratio 15.57 Ratio (12.00-20.00); Blood Urea Nitrogen 10.9 mg/dL (9.0-27.0); Calcium 8.6 mg/dL (8.7-10.3); Chloride 109 mmol/L (96-109); Chol/HDL Ratio 4.29 Ratio; Glucose 85 mg/dL (70-110); LDL Cholesterol,Calculated 94.1 mg/dL (0.0-131.0); Magnesium 1.9 mg/dL (1.5-2.4); Non-African American GFR(CKD) 110.7 (60.0-200.0); Potassium 4.4 mmol/L (3.5-5.5); Sodium 139 mmol/L (135-145)
--- NOTE | 2021-11-15 10:13 | P.PN ---
Subjective Progress Note Date: 11/15/21 The patient is seen at bedside and feels he is doing well. She has not had any further events. Objective - Vital Signs Vital signs: Vital Signs Temp 98.4 F 11/15/21 07:00 Pulse 66 11/15/21 07:00 Resp 17 11/15/21 07:00 BP 110/63 11/15/21 07:00 Pulse Ox 95 11/15/21 07:00 Intake & Output 11/14/21 11/15/21 11/15/21 18:59 06:59 18:59 Weight 68.039 kg Other: # Voids 1 2 - Exam GENERAL: The patient is lying in bed and is not in acute distress. NEUROLOGICAL: Higher mental function: The patient is awake, alert, oriented to self, place and time. Patient is following commands. No aphasia and no neglect. Cranial nerves: The pupils are round, equal and reactive to light and accommodation. Visual sparrow are full to confrontation throughout. Extraocular movement is intact no nystagmus is noted. Facial sensation is normal to touch throughout. The facial strength is normal throughout. Hearing is normal bilaterally to hand rub. Tongue is midline and moved [id number] without any difficulty. No dysarthria is noted. Shoulder shrug is normal bilaterally. Motor: Gait is normal. The strength is 5 over 5 throughout. Normal tone and bulk. Cerebellum: Normal finger to nose heel to quinones bilaterally. Sensation: Sensation is normal to touch throughout. Reflexes (right/left): 2+ throughout. Plantars are downgoing bilaterally. WORK-UP: TSH: 1.770 CT of the head is reported as no acute intracranial abnormality seen. Empty sella may be incidental finding. Correlate clinically to exclude the possibility of pseudotumor cerebri. There is no acute ischemia or subacute ischemia seen as well as there is no intra-parenchymal hemorrhage seen. 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 Recommend follow-up MRI and MRA [place] [facility] [place]. Carotid bifurcation are widely patent CBC with differential is unremarkable MRI the brain is reported as stable brain MRI, correlate to exclude intracranial hypertension, pseudotumor cerebri although findings likely incidental. No acute abnormality. Sinus disease. MRA of the head is reported as stable finding as described, follow-up could be performed to assess for stability. In the body of the report is mentioned that findings are suspicious for aneurysm approximately 2 mm at the level of anterior communicating artery. Alternatively finding may represent variant anatomy with fenestration at the level of anterior communicating artery. CSF: Opening pressure is 20 cm of water and the closing pressure is 15. CSF study is clear, colorless, 0 red blood cell, 3 nuclear cells, glucose is 43, the protein 49. - Labs CBC & Chem 7: 11/15/21 06:16 11/15/21 06:16 Labs: Abnormal Lab Results - Last 24 Hours (Table) 11/14/21 Range/Units 10:35 Carbon Dioxide 21 L (22-30) mmol/L ALT 36 H (4-34) U/L Microbiology - Last 24 Hours (Table) 11/14/21 17:45 CSF Culture - Preliminary Cerebral Spinal Fluid Assessment and Plan Assessment: * Transient symptoms of aphasia (expressive), left hand weakness and right facial droop then later proceed with headache: Uncertain exact cause. Possible complicated migraine vs TIA. Initially suspected patient has possible Idiopathic Intracranial Hypertension (Pseudotumor cerebri) but had normal opening pressure of 20cm water. * Questionable Anterior communicating artery on CTA * History of reported Migraine/Ocular migraine (last one year ago). * History of partial hysterectomy Plan: Consulted Ophthalmology team (Dr. Maher). He did not feel there is indication of Idiopathic Intracranial Hypertension (Pseudotumor cerebri). Continue ASA 81mg and Lipitor 10mg qhs. 2-D echo is pending. Lipid panel is pending Regarding her migraine will defer the management to her neurologist as outpatient. Can consider Topamax 25mg 1 tab bid (patient wants to hold off as outpatient regarding starting medication). Continue neuro checks PT, OT and DINKEY BRAKEMAN are consulted Continue neuro checks Continue cardiac monitoring. Regarding the questional aneurysm patient to follow-up with Dr. Hanson as outpatient for further work-up ([phone]). Defer the rest of the medical management to the primary team. For DVT prophylaxis: Started on subq heparin. Upon discharge the patient to follow-up with her neurologist (Dr. Rader) as outpatient within 1-2 weeks. Consider repeating Lumbar puncture again for opening pressure to assess if remains normal or is elevated if continues to have visual disturbance and headache but will defer it to her neurologist. The plan is discussed with the patient and her who are at bedside.. There is no further work-up. Lai Eduardo MD Neuro-Hospitalist. Time with Patient: Less than 30
--- NOTE | 2021-11-15 14:27 | P.DS ---
Providers Date of admission: 11/14/21 13:00 Expected date of discharge: 11/15/21 Attending physician: Norm Harley MD Consults: 11/14/21 12:57 Consult Physician Routine Consulting Provider: Lai Eduardo Consult Reason/Comments: TIA Do you want consulting provider notified?: Already Contacted 11/14/21 15:00 Consult to Anesthesia Stat Consulting Provider: Anesthesia,Services Consult Reason/Comments: lumbar puncture. Please perform opening and closing pressure 11/14/21 15:02 Consult Physician Urgent Consulting Provider: Jorden Maher Consult Reason/Comments: Headache and visual disturbance. Rule out pseudotumor cerebri. Do you want consulting provider notified?: Yes Primary care physician: [facility] Course: 36-year-old female with no significant past medical history presented to the emergency department due to sudden onset of right facial weakness, inability to express herself and bilateral arms ''not responding'. After that episode she has headaches. He has history of migraine. She also complained of ''glidoscope vision''. Symptoms lasted for 5 minutes but she did not regain her full- strength and consciousness until about 45 minutes after. No fevers or chills. No recent illness. She can't recall focal weakness. No chest pain, shortness of breath, dizziness, nausea or vomiting. 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 Head CT was unremarkable for anything acute. It showed empty sella which may be an incidental finding. Correlate clinically to exclude the possibility of pseudotumor cerebri. Labs unremarkable, tested negative for covid. Patient was admitted for further evaluation and management. Further work up with MRI the brain is reported as stable brain MRI, correlate to exclude intracranial hypertension, pseudotumor cerebri although findings likely incidental. No acute abnormality. Sinus disease. MRA of the head is reported as stable finding as described, follow-up could be performed to assess for stability. In the body of the report is mentioned that findings are suspicious for aneurysm approximately 2 mm at the level of anterior communicating artery. Alternatively finding may represent variant anatomy with fenestration at the level of anterior communicating artery. Echocardiogram was essentially normal. She was seen by neurology who suspected increased intracranial pressure as a cause for her symptoms. Due to that she had an LP done which showed opening pressure of 20, CSF clear, colorless, 0 red blood cell, 3 nuclear cells, glucose is 43, the protein 49. In addition patient was seen by ophthalmology who did an eye exam which showed no evidence of increased intracranial pressure according to the government affairs director. Symptoms did not recur throughout the hospitalization. Case was discussed again with the neurologist today who stated that the TIA cannot be ruled out and because of that patient will need to be on aspirin and Lipitor upon discharge. Patient will be discharged home in stable condition. Patient Condition at Discharge: Serious Plan - Discharge Summary Discharge Rx Participant: No New Discharge Prescriptions: New Aspirin 81 mg PO DAILY 90 Days #90 tab Atorvastatin [Lipitor] 10 mg PO HS 90 Days #90 tab Continue Biotin 5 mg PO DAILY Ascorbic Acid [Vitamin C] 1,000 mg PO DAILY Discharge Medication List Ascorbic Acid [Vitamin C] 1,000 mg PO DAILY 11/14/21 [History] Biotin 5 mg PO DAILY 11/14/21 [History] Aspirin 81 mg PO DAILY 90 Days #90 tab 11/15/21 [Rx] Atorvastatin [Lipitor] 10 mg PO HS 90 Days #90 tab 11/15/21 [Rx] Follow up Appointment(s)/Referral(s): Sushma Ramirez MD [Primary Care Provider] - 1-2 days
== END 2021-11-15 14:55 | disposition home or self-care (01) ==
LOC: EC 10:04 → 6NMEDSUR 13:00
PROVIDERS: ADMIT Internal Medicine; ATTEND Internal Medicine
DX: R29.818 Other symptoms and signs involving the nervous system (principal); R29.810 Facial weakness; R47.01 Aphasia; R41.841 Cognitive communication deficit; R53.1 Weakness; Z20.822 Contact with and (suspected) exposure to COVID-19; I67.1 Cerebral aneurysm, nonruptured; I10 Essential (primary) hypertension; D68.9 Coagulation defect, unspecified; K21.9 Gastro-esophageal reflux disease without esophagitis; Z98.890 Other specified postprocedural states; Z87.891 Personal history of nicotine dependence; Z90.49 Acquired absence of other specified parts of digestive tract; Z90.711 Acquired absence of uterus with remaining cervical stump; Z86.69 Personal history of other diseases of the nervous system and sense organs; Z87.19 Personal history of other diseases of the digestive system; Z86.16 Personal history of COVID-19
CPT/HCPCS: 62270; 99291; 96372; 96361; 96374; 96375; 36415; 93005; 93306; 84157; 80061; 80053; 80048; 82945; 84443; 83735; 84100; 84484; 85025 ×2; 85610; 85730; 89050; 81025; 87070; 87205; 87635; 71046; 70496; 70450; 70498; 70544; 70551; G0378 ×2; J1200; J0780; Q9967; J1644

== ENCOUNTER → 2021-12-11 | Outpatient (CLI) | payer BC ==
--- NOTE | 2021-12-30 18:17 | P.HOLTER ---
71 on Holter monitor shows sinus rhythm Sinus tachycardia occasional premature ventricular beats Atrial triplets Average heart rates in the 80s No bradycardia
== END | disposition home or self-care (01) ==
LOC: RADECHMAIN 07:43
PROVIDERS: ATTEND Family Medicine
DX: I49.3 Ventricular premature depolarization (principal); I49.1 Atrial premature depolarization
CPT/HCPCS: 93225; 93226

== ENCOUNTER → 2022-01-18 | Outpatient (CLI) | payer BC | END | disposition home or self-care (01) | LOC: LABWHC1 08:37 | PROVIDERS: ATTEND Psychiatry & Neurology Neurology | DX: G45.9 Transient cerebral ischemic attack, unspecified (principal) | CPT/HCPCS: 36415; 83090; 85613; 85652; 85730; 86038; 86147 ==

== ENCOUNTER → 2025-03-17 | Outpatient (CLI) | payer BC ==
--- NOTE | 2025-03-17 08:09 | MM ---
Reason for Exam: Screening (asymptomatic). Baseline mammogram. Patient History: Menarche at age 12. First Full-Term at age 17. Hysterectomy at age 28. 2011, Bilateral Reduction. Risk Values: Holly 5 year model risk: 0.4%. NCI Lifetime model risk: 7.3%. Prior Study Comparison: Patient's first Mammogram. No prior studies available for comparison. Tissue Density: The breasts are heterogeneously dense, which may obscure small masses. Findings: Analyzed By CAD. There is no suspicious group of microcalcifications or new suspicious mass in either breast. Overall Assessment: Negative, BI-RAD 1 Management: Screening Mammogram of both breasts in 1 year. . Patient should continue monthly self-breast exams. A clinical breast exam by your physician is recommended on an annual basis. This exam should not preclude additional follow-up of suspicious palpable abnormalities. Note on Holly scores and lifetime risk: 1. A Holly score greater than 3% is considered moderate risk. If this is the case, consider specialist referral to assess eligibility for a risk reducing agent. 2. If overall lifetime risk for the development of breast cancer is 20% or higher, the patient may qualify for future screening with alternating mammogram and breast MRI. [facility], , 03/17/2025 8:04 AM. Electronically signed and approved by: Ashok Orourke M.D. [facility]
== END | disposition home or self-care (01) ==
LOC: RADMAMWWP 07:33
PROVIDERS: ATTEND Family Medicine
DX: Z12.31 Encounter for screening mammogram for malignant neoplasm of breast (principal); R92.333 Mammographic heterogeneous density, bilateral breasts
CPT/HCPCS: 77063; 77067